=== PATIENT | female | born 1995 | race Caucasian/White ===

== ENCOUNTER 2018-11-27 18:13 | Emergency (ER) | payer OTHER ==
[2018-11-27 18:21] VITALS: BP 136/87; PULSE 91; TEMP 98.4; BMI 22.6
--- NOTE | 2018-11-27 19:06 | PDOC ---
History of Present Illness - General Chief Complaint: Pain Stated Complaint: PELVIC & BACK PAIN Time Seen by Provider: 11/27/18 19:00 History Source: Patient - History of Present Illness Occurred: reports: last week Pain Location: reports: pelvis Past History - Past Medical History Allergies/Adverse Reactions: Allergies Allergy/AdvReac Type Severity Reaction Status Date / Time No Known Allergies Allergy Verified 11/27/18 18:20 Home Medications: Ambulatory Orders Doxycycline Hyclate 100 mg PO BID #27 tablet 11/27/18 Ibuprofen [Motrin -] 600 mg PO QID #28 tablet 11/27/18 metroNIDAZOLE [Flagyl -] 500 mg PO BID #28 tablet 11/27/18 COPD: No Diabetes: Yes (IDDM) - Suicide/Smoking/Psychosocial Hx Smoking History: Never smoked Review of Systems - Review of Systems Constitutional: No: Chills, Fever ABD/GI: No: Nausea, Vomiting : Yes: Discharge. No: Burning, Dysuria, Flank Pain, Hematuria *Physical Exam - Vital Signs Last Vital Signs Temp Pulse Resp BP Pulse Ox 98.4 F 91 H 18 136/87 99 11/27/18 18:17 11/27/18 18:17 11/27/18 18:17 11/27/18 18:17 11/27/18 18:17 - Physical Exam General Appearance: Yes: Appropriately Dressed. No: Apparent Distress HEENT: positive: Normal Voice Neck: positive: Supple Respiratory/Chest: negative: Respiratory Distress Female Pelvic Exam: positive: normal external exam, cervical os closed, adnexal tenderness (b/l adnexal ttp). negative: CMT, discharge, lesions Gastrointestinal/Abdominal: positive: Normal Bowel Sounds, Tender (Sig ttp to R suprapubic area, no ttp over mcburneys), Soft. negative: Distended, Guarding, Rebound Musculoskeletal: negative: CVA Tenderness Integumentary: positive: Dry, Warm Neurologic: positive: Fully Oriented, Alert, Normal Mood/Affect ED Treatment Course - LABORATORY CBC & Chemistry Diagram: 11/27/18 19:40 11/27/18 19:40 *DC/Admit/Observation/Transfer Diagnosis at time of Disposition: PID (acute pelvic inflammatory disease) - Discharge Dispostion Disposition: HOME Condition at time of disposition: Stable - Prescriptions Prescriptions: Doxycycline Hyclate 100 mg PO BID #27 tablet Ibuprofen [Motrin -] 600 mg PO QID #28 tablet metroNIDAZOLE [Flagyl -] 500 mg PO BID #28 tablet - Referrals Referrals: Rajat Soto MD [Primary Care Provider] - - Patient Instructions Printed Discharge Instructions: DI for Pelvic Inflammatory Disease Additional Instructions: Your blood work an ultrasound were normal today The cause of your pelvic pain might be a condition called pelvic inflammatory disorder which is a disorder that can be caused by various bacteria. You were started on multiple medications today to treat the most common organisms that can cause this condition. Take doxycycline twice a day as indicated for the next 2 weeks. Also take Flagyl twice a day for the next 2 weeks. You were also prescribed Motrin to take for pain as needed. Please return to the ER if symptoms persist and/or worsen. 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
[2018-11-27] MEDS ORDERED: IBUPROFEN 400 MG TABLET (FP) PO ONE ×2 (19:21→20:31)
[2018-11-27] MEDS ORDERED: DOXYCYCLINE HYCLATE 100 MG CAPSULE PO ONE ×2 (19:21→20:26)
[2018-11-27 19:58] LABS: PH,URINE 7.5 (5.0-8.0); URINE APPEARANCE CLEAR; URINE BILIRUBIN NEGATIVE (NEGATIVE); URINE COLOR YELLOW; URINE GLUCOSE (UA) NEGATIVE (NEGATIVE); URINE KETONE NEGATIVE (NEGATIVE); URINE LEUK ESTERASE NEGATIVE (NEGATIVE); URINE NITRITE NEGATIVE (NEGATIVE); URINE PROTEIN TRACE (NEGATIVE)
[2018-11-27 20:02] LABS: BASO % 0.8 % (0-2.0); EOS % 0.8 % (0-4.5); HEMATOCRIT 39.2 % (32.4-45.2); HEMOGLOBIN 13.3 GM/dL (10.7-15.3); LYMPH % 31.7 % (8-40); MCH 30.4 pg (25.7-33.7); MCHC 33.9 g/dl (32.0-36.0); MEAN CELL VOLUME 89.7 fl (80-96); MEAN PLT VOLUME 9.2 fl (7.5-11.1); MONO % 5.8 % (3.8-10.2); NEUT % 60.9 % (42.8-82.8); PLATELET COUNT 272 K/MM3 (134-434); RBC 4.37 M/mm3 (3.60-5.2); RDW 13.2 % (11.6-15.6); WHITE BLOOD COUNT 11.7 K/mm3 (4.0-10.0)
[2018-11-27 20:12] LABS: ALBUMIN 4.2 g/dl (3.4-5.0); BILIRUBIN,TOTAL 0.4 mg/dL (0.2-1); CREATININE 0.8 mg/dL (0.55-1.3); POTASSIUM 3.7 mmol/L (3.5-5.1); TOT PROT 7.8 g/dl (6.4-8.2)
[2018-11-27] MEDS ORDERED: LIDOCAINE HCL 1%, 10 MG/ML (20ML VIAL) ONE (20:25)
[2018-11-27] MEDS ORDERED: cefTRIAXone SODIUM 1 GM VIAL ONE (20:26)
[2018-11-27] MEDS ORDERED: LIDOCAINE 1% P/F 10 MG/ML VIAL SQ ONE (20:32)
--- NOTE | 2018-11-27 21:00 | PDOC ---
History of Present Illness - General History Source: Patient - History of Present Illness Timing/Duration: reports: getting worse Quality: reports: moderate Abdominal Pain Onset Location: reports: suprapubic <Stefania Putnam - Last Filed: 11/27/18 21:00> <Yuridia Little Beckmarylou - Last Filed: 11/29/18 09:47> - General Chief Complaint: Pain Stated Complaint: PELVIC & BACK PAIN Time Seen by Provider: 11/27/18 19:00 Past History - Past Medical History COPD: No Diabetes: Yes (IDDM) - Suicide/Smoking/Psychosocial Hx Smoking History: Never smoked Information on smoking cessation initiated: No <Stefania Putnam - Last Filed: 11/27/18 21:00> <LittleJuancarlosYuridia Norris - Last Filed: 11/29/18 09:47> - Past Medical History Allergies/Adverse Reactions: Allergies Allergy/AdvReac Type Severity Reaction Status Date / Time No Known Allergies Allergy Verified 11/27/18 18:20 Home Medications: Ambulatory Orders Doxycycline Hyclate 100 mg PO BID #27 tablet 11/27/18 Ibuprofen [Motrin -] 600 mg PO QID #28 tablet 11/27/18 metroNIDAZOLE [Flagyl -] 500 mg PO BID #28 tablet 11/27/18 Review of Systems - Review of Systems Constitutional: No: Chills, Fever ABD/GI: Yes: Abdominal cramping. No: Constipated, Diarrhea, Nausea, Vomiting : Yes: Discharge. No: Dysuria, Frequency, Flank Pain, Hematuria, Lesions Musculoskeletal: No: Back Pain <Stefania Putnam - Last Filed: 11/27/18 21:00> *Physical Exam - Vital Signs Last Vital Signs Temp Pulse Resp BP Pulse Ox 98.4 F 91 H 18 136/87 99 11/27/18 18:17 11/27/18 18:17 11/27/18 18:17 11/27/18 18:17 11/27/18 18:17 - Physical Exam General Appearance: Yes: Appropriately Dressed. No: Apparent Distress HEENT: positive: Normal Voice Neck: positive: Supple Respiratory/Chest: negative: Respiratory Distress Female Pelvic Exam: positive: normal external exam, cervical os closed, adnexal tenderness (b/l adnexal ttp). negative: CMT, discharge, vaginal bleeding Gastrointestinal/Abdominal: positive: Normal Bowel Sounds, Tender (to R usprapubic area, NT over mcburneys), Soft. negative: Distended, Guarding, Rebound Musculoskeletal: negative: CVA Tenderness Integumentary: positive: Dry, Warm Neurologic: positive: Fully Oriented, Alert, Normal Mood/Affect <Stefania Putnam - Last Filed: 11/27/18 21:00> - Vital Signs Last Vital Signs Temp Pulse Resp BP Pulse Ox 98.4 F 91 H 18 136/87 99 11/27/18 18:17 11/27/18 18:17 11/27/18 18:17 11/27/18 18:17 11/27/18 18:17 <Yuridia Little Anabelalondramarylou - Last Filed: 11/29/18 09:47> ED Treatment Course - LABORATORY CBC & Chemistry Diagram: 11/27/18 19:40 11/27/18 19:40 - ADDITIONAL ORDERS Additional order review: Laboratory Results 11/27/18 11/27/18 11/27/18 19:40 19:40 19:40 Sodium 140 Potassium 3.7 Chloride 105 Carbon Dioxide 30 Anion Gap 6 L BUN 15.0 Creatinine 0.8 Est GFR (CKD-EPI)AfAm 119.60 Est GFR (CKD-EPI)NonAf 103.19 Random Glucose 74 Calcium 10.0 Total Bilirubin 0.4 AST 24 ALT 33 Alkaline Phosphatase 112 Total Protein 7.8 Albumin 4.2 Urine Color Yellow Urine Appearance Clear Urine pH 7.5 Ur Specific [place] 1.022 Urine Protein Trace Urine Glucose (UA) Negative Urine Ketones Negative Urine Blood Negative Urine Nitrite Negative Urine Bilirubin Negative Urine Urobilinogen 1.0 Ur Leukocyte Esterase Negative Urine HCG, Qual Negative 11/27/18 19:40 RBC 4.37 MCV 89.7 MCHC 33.9 RDW 13.2 MPV 9.2 Neutrophils % 60.9 Lymphocytes % 31.7 Monocytes % 5.8 Eosinophils % 0.8 Basophils % 0.8 - RADIOLOGY Radiology Studies Ordered: Category Date Time Status PELVIS(OTHER) US [US] Stat Ultrasound 11/27/18 19:19 Taken TRANSVAGINAL ULTRASOUND US [US] Stat Ultrasound 11/27/18 19:18 Taken - Medications Given in the ED: ED Medications Discontinued Medications Generic Name Dose Route Start Last Admin Trade Name Freq PRN Reason Stop Dose Admin Ceftriaxone Sodium 250 mg 11/27/18 19:21 11/27/18 20:36 Rocephin - IM 11/27/18 19:22 250 mg ONCE ONE Administration Doxycycline Hyclate 100 mg 11/27/18 19:21 11/27/18 20:36 Vibramycin - PO 11/27/18 19:22 100 mg ONCE ONE Administration Ibuprofen 800 mg 11/27/18 19:21 11/27/18 20:35 Motrin - PO 11/27/18 19:22 800 mg ONCE ONE Administration Lidocaine HCl 10 mg 11/27/18 20:32 11/27/18 20:36 Xylocaine 1% P/F - SQ 11/27/18 20:33 10 mg ONCE ONE Administration <Stefania Putnam - Last Filed: 11/27/18 21:00> - LABORATORY CBC & Chemistry Diagram: 11/27/18 19:40 11/27/18 19:40 - ADDITIONAL ORDERS Additional order review: 11/27/18 19:40 Urine Culture - Final Urine - Urine Clean Catch Non Lactose Fermenting Gnb 11/27/18 19:40 RBC 4.37 MCV 89.7 MCHC 33.9 RDW 13.2 MPV 9.2 Neutrophils % 60.9 Lymphocytes % 31.7 Monocytes % 5.8 Eosinophils % 0.8 Basophils % 0.8 - Medications Given in the ED: ED Medications Discontinued Medications Generic Name Dose Route Start Last Admin Trade Name Freq PRN Reason Stop Dose Admin Ceftriaxone Sodium 250 mg 11/27/18 19:21 11/27/18 20:36 Rocephin - IM 11/27/18 19:22 250 mg ONCE ONE Administration Doxycycline Hyclate 100 mg 11/27/18 19:21 11/27/18 20:36 Vibramycin - PO 11/27/18 19:22 100 mg ONCE ONE Administration Ibuprofen 800 mg 11/27/18 19:21 11/27/18 20:35 Motrin - PO 11/27/18 19:22 800 mg ONCE ONE Administration Lidocaine HCl 10 mg 11/27/18 20:32 11/27/18 20:36 Xylocaine 1% P/F - SQ 11/27/18 20:33 10 mg ONCE ONE Administration <Yuridia Little - Last Filed: 11/29/18 09:47> Medical Decision Making - Medical Decision Making 11/27/18 19:01 22 yo F, no sig hx, here w/ persistent R pelvic pain. Pt states pain started 1 week ago and getting worse. Seen at [facility] and had negative workup including CT abd/pelvis. Patient states pain persisted, so went to a another hospital in [place] and had [address] scans done which were both negative. Also has pelvic US which was normal per pt. States she continued having symptoms so went to see Dr. Bliss, her IT DATA ARCHITECT, several days ago who sent STD cultures and called patient yesterday, telling her that her test for Chlamydia came back positive. Patient has since taken a dose of 1 g azithro and was told by her IT DATA ARCHITECT to come to ER if pain persists. Patient also c/ o scant amount of possible foul-smelling discharge. No dysuria, nausea, vomiting, fever or chills. See exam Concern for PID Confirmed chlamydia test yesterday w/ Dr Bliss Exam remarkable for sig R suprapubic tenderness w/ R adnexal ttp (of note multiple CT neg for appy w/in past week per hx) Took 1 g azithro yesterday -dose of rocephin here -1st dose of doxy -will add flagyl given ?foul smelling dc -labs and US r/o TOA -anticipate dc w/ IT DATA ARCHITECT f/u w/in 48 hrs 11/27/18 20:51 Labs unremarkable. Pelvic US read as non-specific trace fluid in endocervical canal, otherwise no pelvic ab/nl. Pt remains stable and well kim here w/ no vomiting or fever to warrant inpt admission. Feels well enough to home on po bx. To f/u with her IT DATA ARCHITECT on Thursday. Strict return precautions given <Stefania Putnam - Last Filed: 11/27/18 21:00> - Medical Decision Making agree with midlevel provider assessment and plan. reviewed notes, labs and relevant workup 11/29/18 09:47 <Yuridia Little - Last Filed: 11/29/18 09:47> *DC/Admit/Observation/Transfer <Stefania Putnam - Last Filed: 11/27/18 21:00> <Yuridia Little - Last Filed: 11/29/18 09:47> Diagnosis at time of Disposition: PID (acute pelvic inflammatory disease) - Discharge Dispostion Disposition: HOME Condition at time of disposition: Stable - Prescriptions Prescriptions: Doxycycline Hyclate 100 mg PO BID #27 tablet Ibuprofen [Motrin -] 600 mg PO QID #28 tablet metroNIDAZOLE [Flagyl -] 500 mg PO BID #28 tablet - Referrals Referrals: Rajat Soto MD [Primary Care Provider] - - Patient Instructions Printed Discharge Instructions: DI for Pelvic Inflammatory Disease Additional Instructions: Your blood work an ultrasound were normal today The cause of your pelvic pain might be a condition called pelvic inflammatory disorder which is a disorder that can be caused by various bacteria. You were started on multiple medications today to treat the most common organisms that can cause this condition. Take doxycycline twice a day as indicated for the next 2 weeks. Also take Flagyl twice a day for the next 2 weeks. You were also prescribed Motrin to take for pain as needed. Please return to the ER if symptoms persist and/or worsen. Otherwise, it is important that you follow-up with her IT DATA ARCHITECT on Thursday for reassessment - Post Discharge Activity
== END 2018-11-27 21:06 | disposition home or self-care (01) ==
LOC: JER 18:13
DX: N73.0 Acute parametritis and pelvic cellulitis (principal); E10.9 Type 1 diabetes mellitus without complications; Z79.4 Long term (current) use of insulin
CPT/HCPCS: 36415; 76830-TC; 76856-TC; 80053; 81003; 84703; 85025; 87077; 87086; 99282-25